=== PATIENT | male | born 1955 | race Caucasian/White ===

== ENCOUNTER 2021-07-04 13:35 | Emergency (ER) | payer OTHER, MEDICARE ==
[2021-07-04 15:37] LABS: BASOPHIL 0.6 % (0-2); EOSINOPHIL 0.9 % (0-7); HCT 40.4 % (42.0-52.0); HGB 13.4 g/dl (13.2-18.0); LYMPHOCYTE 16.8 % (15-48); MCH 31.9 pg (25.0-31.0); MCHC 33.2 g/dL (32.0-36.0); MCV 96.2 fL (78.0-100.0); MPV 8.9 fL (6.0-9.5); NEUTROPHIL 75.3 % (41-80); NRBC 0; PLT 227 K/uL (150-400)
[2021-07-04 15:42] LABS: BILIRUBIN NEGATIVE (NEGATIVE); BLOOD 1+ Ery/uL (NEGATIVE); CLARITY CLEAR (CLEAR); COLOR YELLOW (YELLOW); GLUCOSE (U) NORMAL (NORMAL); LEUKOCYTES NEGATIVE Leu/uL (NEGATIVE); NITRITE NEGATIVE (NEGATIVE); PROTEIN NEGATIVE (NEGATIVE)
[2021-07-04 15:50] LABS: BACTERIA TRACE; MUCOUS TRACE
[2021-07-04 15:53] LABS: BUN/CREAT RATIO (CALC) 8.6 RATIO; CREATININE 1.39 mg/dL (0.67-1.17)
[2021-07-05] MEDS ORDERED: MECLIZINE HCL25 MG PO (12:37)
== END 2021-07-04 17:20 | disposition home or self-care (01) ==
LOC: FER 13:35
PROVIDERS: Nurse Practitioner Family
DX: H81.10 Benign paroxysmal vertigo, unspecified ear (principal); E11.9 Type 2 diabetes mellitus without complications; I10 Essential (primary) hypertension; Z79.84 Long term (current) use of oral hypoglycemic drugs; Z79.899 Other long term (current) drug therapy; Z79.02 Long term (current) use of antithrombotics/antiplatelets; Z28.310 Unvaccinated for COVID-19
CPT/HCPCS: 36415; 70450; 80048; 81001; 85025; J7030